=== PATIENT | female | born 1985 | race Caucasian/White ===

== ENCOUNTER 2017-12-21 16:04 | Emergency (ER) | payer OTHER ==
[2017-12-21] MEDS ORDERED: NS 500 ML IV ONE (16:26)
[2017-12-21 16:44] LABS: PLATELET COUNT 328 10^3/uL (150-400)
--- NOTE | 2017-12-21 18:14 | EDPHY ---
H & P Time Seen by Provider: 12/21/17 16:26 HPI/ROS: HPI Chest discomfort. 32-year-old female by private vehicle with boyfriend. She reports that 10:00 a.m. To 11:00 a.m. This morning she developed which she describes as intermittent pulsating sharp chest pain left mid anterior parasternal area. No associated shortness of breath. She reports the pain would come on for seconds and then dissipate. She is now feeling much better and denies any chest pain. She does not smoke. No methamphetamine, cocaine abuse or other drug abuse. No history of hyperlipidemia, diabetes, high blood pressure. No significant family history. She is not obese. ROS: Constitutional: No fever, no chills. No weakness. Respiratory: No cough. No shortness of breath. Cardiac: As above, no palpitations. Gastrointestinal: No abdominal pain, no vomiting, no diarrhea. Musculoskeletal: No back pain. No neck pain. No myalgias or arthralgias. Skin: No rashes. Neurological: No headache. No focal weakness or altered sensation. Past medical history: No significant past medical history. Social history: Nonsmoker. No alcohol. Here with boyfriend. Physical Exam: General Appearance: Alert, no distress. This patient is responding to questions appropriately and in full sentences. This patient appears well- hydrated and well-nourished. Eyes: Pupils equal and round no pallor or injection. No lid edema, erythema or injection. Respiratory: There are no retractions, lungs are clear to auscultation with good air movement bilaterally. No chest wall tenderness on palpation. Cardiovascular: Regular rate and rhythm. No murmur. Gastrointestinal: Abdomen is soft and nontender, no masses, bowel sounds normal. No focal tenderness at McBurney's point. No Parsons sign. Neurological: Motor sensory function is grossly intact. Cranial nerves are normal. Gait is normal. Skin: Warm and dry, no rashes. Musculoskeletal: Neck is supple and nontender. Extremities are symmetrical. All joints range without pain or impingement. Psychiatric: No agitation. No depression. Database: EKG: EKG time is 4:26 p.m.; EKG shows a narrow complex normal sinus rhythm with a ventricular rate of 77. The [place], QRS, QT intervals are within normal limits. There are no ST-T wave changes indicative of ischemic or injury pattern. No evidence of right heart strain. Interpreted by me. Imaging: Chest x-ray AP portable; the cardiac mediastinal silhouette is unremarkable. No evidence of infiltrate or pneumothorax. No acute cardiopulmonary disease process noted. Interpreted by me. Procedures: Emergency department course: Triage vital signs reviewed. Vital signs are normal. On my evaluation, the patient denies any chest discomfort or shortness of breath. EKG obtained and reviewed by myself. 6:10 p.m., patient re-evaluated. Resting comfortably at this time. Denies any chest pain. No shortness of breath. Results of diagnostic workup discussed with her and her boyfriend. She is very low risk based on her heart score for acute coronary syndrome an adverse cardiac event. She feels comfortable going home at this time and I feel she is safe for discharge. Follow-up and return to emergency department precautions reviewed with her. All of her questions were answered. She was discharged from the emergency department in good condition with her boyfriend. Differential Diagnosis: The differential diagnosis on this patient includes but is not limited to pleurisy, esophageal spasm, costal chondritis. Acute coronary syndrome, pulmonary embolism, myocarditis, pericarditis, pneumonia, pneumothorax, aortic dissection unlikely. This represents a partial list of diagnoses considered. These considerations are based on history, physical exam, past history, reassessment and diagnostic testing. Smoking Status: Never smoked Constitutional: Initial Vital Signs Temperature (C) 36.8 C 12/21/17 16:12 Heart Rate 83 12/21/17 16:12 Respiratory Rate 18 12/21/17 16:12 Blood Pressure 134/99 H 12/21/17 16:12 O2 Sat (%) 99 12/21/17 16:12 O2 Delivery Mode Room Air Allergies/Adverse Reactions: No Known Allergies Allergy (Unverified 12/21/17 16:15) Home Medications: Medication Instructions Recorded Norethindrone-Ethinyl Estrad 12/21/17 Medical Decision Making - Diagnostics Imaging Results: Imaging Impressions Chest X-Ray 12/21/17 16:26 Impression: Negative portable chest. - Data Points Laboratory Results: Laboratory Results 12/21/17 16:30 12/21/17 16:30 12/21/17 12/21/17 12/21/17 16:37 16:30 16:30 WBC RBC Hgb Hct MCV MCH MCHC RDW Plt Count MPV Neut % (Auto) Lymph % (Auto) [place] % (Auto) Eos % (Auto) Baso % (Auto) Nucleat RBC Rel Count Absolute Neuts (auto) Absolute Lymphs (auto) Absolute Monos (auto) Absolute Eos (auto) Absolute Basos (auto) Absolute Nucleated RBC Immature Gran % Immature Gran # D-Dimer Sodium 136 mEq/L mEq/L (135-145) Potassium 4.0 mEq/L mEq/L (3.3-5.0) Chloride 107 mEq/L mEq/L (97-110) Carbon Dioxide 21 mEq/l L mEq/l (22-31) Anion Gap 8 mEq/L mEq/L (8-16) BUN 11 mg/dL mg/dL (7-23) Creatinine 0.5 mg/dL L mg/dL (0.6-1.0) Estimated GFR > 60 Glucose 103 mg/dL H mg/dL (70-100) Calcium 9.3 mg/dL mg/dL (8.5-10.4) POC Troponin I 0.00 ng/mL ng/mL (0.00-0.08) Beta HCG, Qual NEGATIVE 12/21/17 12/21/17 16:30 16:30 WBC 9.12 10^3/uL 10^3/uL (3.80-9.50) RBC 4.18 10^6/uL 10^6/uL (4.18-5.33) Hgb 13.3 g/dL g/dL (12.6-16.3) Hct 37.6 % L % (38.0-47.0) MCV 90.0 fL fL (81.5-99.8) MCH 31.8 pg pg (27.9-34.1) MCHC 35.4 g/dL g/dL (32.4-36.7) RDW 12.4 % % (11.5-15.2) Plt Count 328 10^3/uL 10^3/uL (150-400) MPV 9.6 fL fL (8.7-11.7) Neut % (Auto) 57.6 % % (39.3-74.2) Lymph % (Auto) 32.3 % % (15.0-45.0) [place] % (Auto) 7.8 % % (4.5-13.0) Eos % (Auto) 1.6 % % (0.6-7.6) Baso % (Auto) 0.5 % % (0.3-1.7) Nucleat RBC Rel Count 0.0 % % (0.0-0.2) Absolute Neuts (auto) 5.24 10^3/uL 10^3/uL (1.70-6.50) Absolute Lymphs (auto) 2.95 10^3/uL 10^3/uL (1.00-3.00) Absolute Monos (auto) 0.71 10^3/uL 10^3/uL (0.30-0.80) Absolute Eos (auto) 0.15 10^3/uL 10^3/uL (0.03-0.40) Absolute Basos (auto) 0.05 10^3/uL 10^3/uL (0.02-0.10) Absolute Nucleated RBC 0.00 10^3/uL 10^3/uL (0-0.01) Immature Gran % 0.2 % % (0.0-1.1) Immature Gran # 0.02 10^3/uL 10^3/uL (0.00-0.10) D-Dimer < 0.27 ug/mLFEU ug/mLFEU (0.00-0.50) Sodium Potassium Chloride Carbon Dioxide Anion Gap BUN Creatinine Estimated GFR Glucose Calcium POC Troponin I Beta HCG, Qual Medications Given: Discontinued Medications Sodium Chloride (Ns) 500 mls @ 1,000 mls/hr IV EDNOW ONE PRN Reason: Protocol Stop: 12/21/17 16:55 Last Admin: 12/21/17 16:34 Dose: 500 mls Point of Care Test Results: Chemistry 12/21/17 16:37 POC Troponin I 0.00 ng/mL ng/mL (0.00-0.08) Departure - Departure Disposition: Home, Routine, Self-Care Clinical Impression: Chest discomfort Condition: Good Instructions: Chest Pain (ED) Additional Instructions: Read and follow provided instructions. Follow-up with your primary care physician in 1-2 days for re-evaluation as discussed. Return to the emergency department for return of chest pain, worsening of chest pain, shortness of breath, cough, fever or other serious concerns. Referrals: NONE *PRIMARY CARE P,. [Primary Care Provider] - As per Instructions
[2017-12-21 18:29] VITALS: BP 117/75
--- NOTE | 2017-12-30 14:59 | CPEKG ---
Test Reason : OPEN Blood Pressure : / mmHG Vent. Rate : 077 BPM Atrial Rate : 074 BPM P-R Int : 125 ms QRS Dur : 068 ms QT Int : 379 ms P-R-T Axes : 077 070 052 degrees QTc Int : 429 ms Sinus rhythm Confirmed by Hung Richards ([id number]) on 12/30/2017 2:59:15 PM Referred By: Confirmed By:Hung Richards
== END 2017-12-21 18:29 | disposition home or self-care (01) ==
DX: R07.89 Other chest pain (principal); E86.9 Volume depletion, unspecified
CPT/HCPCS: 84484-PO